=== PATIENT | male | born 1960 | race Caucasian/White ===

== ENCOUNTER → 2017-04-24 | Outpatient (CLI) | payer BC | END | disposition home or self-care (01) | LOC: GMAL 10:48 | PROVIDERS: ATTEND Family Medicine | DX: Z00.01 Encounter for general adult medical examination with abnormal findings (principal) ==

== ENCOUNTER → 2017-11-10 | Outpatient (CLI) | payer BC | END | disposition home or self-care (01) | LOC: GMAL 13:30 | PROVIDERS: ATTEND Family Medicine | DX: R53.83 Other fatigue (principal); D51.3 Other dietary vitamin B12 deficiency anemia; E78.4 Other hyperlipidemia; R41.3 Other amnesia; E29.8 Other testicular dysfunction; E55.9 Vitamin D deficiency, unspecified ==

== ENCOUNTER → 2017-11-17 | Outpatient (CLI) | payer BC ==
--- NOTE | 2017-11-17 11:22 | MRI ---
EXAM DESCRIPTION: Brain w/wo Contrast: Magnetic Resonance Imaging. 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 TECHNIQUE: Multiplanar, high-field MRI, multiple conventional sequences, without and with gadolinium IV contrast. No adverse reactions. Multiple axial diffusion sequences. Minimal technical limitations on the study due to patient motion. FINDINGS: Multiple small focal hyperintense FLAIR and T2-weighted signal in the periventricular white matter and tang-white matter junctions of the cerebral hemispheres. . Relatively symmetric and at and superior to the level of the body of the lateral ventricles. Minimal involvement of the bilateral temporal lobes. Not associated with hemorrhage, cerebral edema, or abnormal contrast enhancement. No diffusion restriction. Similar signal in the left central cheri. No mass effect hemorrhage or abnormal enhancement. Increased serpiginous and linear vessel type enhancement in the right frontal lobe subcortical white matter medial to the right sylvian fissure. Elongated linear hypointense signal on T1 and inversion recovery sequences. No diffusion restriction. Normal signal in the bilateral Basal ganglia. No hemorrhage, no cerebral edema, no mass-effect. Normal contrast enhancement. Normal signal in the remainder of the brainstem and cerebellar hemispheres. No hemorrhage, no cerebral edema, no mass-effect. Normal contrast enhancement. Concordance of the diffusion and non-diffusion sequences with no evidence of acute or subacute infarction. Cortical sulci, ventricles, and other CSF spaces, and the subdural spaces are normally configured for patients age.. No effacement or displacement. No midline shift. No extra-axial hemorrhage. Normal contrast enhancement. Normal flow signal void in the major vessels of the big [place] Bai, and the venous sinuses. IACs are symmetric bilaterally. Normal signal in the bilateral mastoid air cells. No mass effect in the bilateral Cerebellopontine angles. Normal contrast enhancement. Pituitary gland occupies the entire sella. Normal contrast enhancement. Base of the cerebellar tonsils is at the level of the foramen magnum. Minimal periosteal thickening in some of the paranasal sinuses. The bony calvarium is intact. IMPRESSION: 1. Relatively symmetric bilateral focal white matter hyperintensities in the periventricular white matter, less seen in the subcortical white matter and junction with cortical tang matter. This is most likely related to cerebral microvascular disease. Less likely to represent white matter demyelination, vasculitis, migraine headaches, or inflammatory process. No diffusion restriction hemorrhage or cerebral edema. 2. Prominent vascular signal in the right frontal lobe inferiorly and communicating with the anterior sagittal vascular structures is most likely a vascular malformation. No mass, no cerebral edema, no diffusion restriction. 3. Normal MRI noncontrast diffusion study with no evidence of acute or subacute infarction. Electronically signed by: Anil Monet MD 11/17/2017 11:21 AM CDT
== END ==
LOC: MRI 06:31
PROVIDERS: ATTEND Family Medicine
DX: R51 Headache (principal); R41.81 Age-related cognitive decline

== ENCOUNTER → 2018-05-04 | Outpatient (CLI) | payer BC | LOC: GMAL 10:30 | PROVIDERS: ATTEND Family Medicine | DX: D51.3 Other dietary vitamin B12 deficiency anemia (principal); E55.9 Vitamin D deficiency, unspecified; Z12.5 Encounter for screening for malignant neoplasm of prostate ==

== ENCOUNTER 2018-05-19 13:11 | Emergency (ER) | payer BC ==
[2018-05-19] MEDS ORDERED: HYDROcodone 10MG/APAP 325MG 1 EA TAB PO ONE (13:36)
--- NOTE | 2018-05-19 13:46 | ED.PDOC ---
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 Occurred: this afternoon Pain - Lower Extremity: moderate: Left Knee Method of Injury: unknown Improving Factors: immobilization, other - positioned in extension Worsening Factors: movement Allergies/Adverse Reactions: Allergies NO KNOWN ALLERGY Allergy (Verified 03/03/16 12:43) Home Medications: Ambulatory Orders Metoprolol Succinate [Toprol XL] 200 mg PO DAILY 03/03/16 Valsartan [Diovan] 320 mg PO DAILY 03/03/16 amLODIPine BESYLATE [Norvasc] 10 mg PO DAILY 03/03/16 Aspirin (Buffered) 325 mg [Bufferin 325 mg] 1 ea PO QD 03/07/16 Acetaminophen W/ Codeine [Tylenol W/ CODEINE #3] 1 ea PO Q8HRS PRN 5 Days #15 05/19/18 Atorvastatin Calcium [Lipitor] 20 mg PO DAILY 05/19/18 Cyanocobalamin [Vitamin B-12] 1,000 mcg SL DAILY 05/19/18 Multiple Vitamins W/ Minerals [Multivitamin Adults] 1 tab PO DAILY 05/19/18 Triamterene & Hydrochlorothiaz [Maxzide-25 37.5-25 mg] 1 tab PO DAILY 05/19/18 Review of Systems - Review of Systems Constitutional: States: no symptoms reported. Denies: fever Respiratory: Denies: cough, short of breath Cardiology: Denies: chest pain Gastrointestinal/Abdominal: States: no symptoms reported Musculoskeletal: States: see HPI, joint pain, joint swelling Skin: States: no symptoms reported Neurological: States: no symptoms reported Past Medical History (General) - Patient Medical History Hx Congestive Heart Failure: No Hx Diabetes: No Family Medical History - Family History Mother Family History: Unknown Physical Exam - Physical Exam General Appearance: Alert, Comfortable, No apparent distress, Obese Neck: supple, normal inspection Thigh/Hip: normal inspection, non-tender, no evidence of injury Leg: normal inspection, non-tender, no evidence of injury Knee: limited ROM, pain, soft tissue tenderness, swelling Ankle: normal inspection, no evidence of injury Neuro/Tendon: normal motor functions, no evidence tendon injury Mental Status: alert, oriented x 3 Skin: normal color, warm/dry Progress - Progress Progress: 05/19/18 23:38 He appears to have a bursal effusion, not a joint effusion - EKG/XRAY/CT XRAY: knee - no fx Departure - Departure Clinical Impression: Bursitis Qualifiers: Bursitis location: knee Knee bursitis location: suprapatellar bursitis Laterality: left Qualified Code(s): M70.52 - Other bursitis of knee, left knee Time of Disposition: 14:32 Disposition: Discharge to Home or Self Care Condition: Fair Departure Forms: ED Discharge - Pt. Copy, Patient Portal Self Enrollment Instructions: Bursitis (DC) Activity: increase activity as tolerated Referrals: Reggie Feliciano MD [Active Staff] - 05/21/18 Prescriptions: Acetaminophen W/ Codeine [Tylenol W/ CODEINE #3] 1 ea PO Q8HRS PRN 5 Days #15 PRN Reason: Moderate Pain Home Medications: Ambulatory Orders Metoprolol Succinate [Toprol XL] 200 mg PO DAILY 03/03/16 Valsartan [Diovan] 320 mg PO DAILY 03/03/16 amLODIPine BESYLATE [Norvasc] 10 mg PO DAILY 03/03/16 Aspirin (Buffered) 325 mg [Bufferin 325 mg] 1 ea PO QD 03/07/16 Acetaminophen W/ Codeine [Tylenol W/ CODEINE #3] 1 ea PO Q8HRS PRN 5 Days #15 05/19/18 Atorvastatin Calcium [Lipitor] 20 mg PO DAILY 05/19/18 Cyanocobalamin [Vitamin B-12] 1,000 mcg SL DAILY 05/19/18 Multiple Vitamins W/ Minerals [Multivitamin Adults] 1 tab PO DAILY 05/19/18 Triamterene & Hydrochlorothiaz [Maxzide-25 37.5-25 mg] 1 tab PO DAILY 05/19/18
[2018-05-19 13:57] VITALS: TEMP 99.1
--- NOTE | 2018-05-19 14:05 | RAD ---
EXAM DESCRIPTION: Knee,Left 2 or More Views CLINICAL HISTORY: swelling pain COMPARISON: None FINDINGS: 3 view(s) submitted. No fracture or dislocation is identified. Bone marrow attenuation is unremarkable. No radiopaque foreign body is identified. There is a knee joint effusion. Degenerative changes are present. There is mild lateral patellar subluxation. There is medial femorotibial joint space narrowing. IMPRESSION: No acute fracture or dislocation. Electronically signed by: Anil Gates 05/19/2018 2:03 PM CDT
[2018-05-19 15:11] VITALS: BP 140/71; O2SAT 98
== END 2018-05-19 15:00 | disposition home or self-care (01) ==
LOC: ER 13:11
DX: M70.52 Other bursitis of knee, left knee (principal)

== ENCOUNTER → 2018-05-23 | Outpatient (CLI) | payer BC | LOC: GMAL 14:33 | PROVIDERS: ATTEND Family Medicine | DX: M25.50 Pain in unspecified joint (principal) ==

== ENCOUNTER → 2019-01-14 | Outpatient (CLI) | payer BC | LOC: LAB.O 09:30 | PROVIDERS: ATTEND Orthopaedic Surgery | DX: Z01.818 Encounter for other preprocedural examination (principal) ==

== ENCOUNTER 2019-02-12 05:35 | Inpatient (IN) | payer BC ==
--- NOTE | 2019-02-11 10:51 | HP ---
CHIEF COMPLAINT: Left knee pain. HISTORY OF PRESENT ILLNESS: Jimbo is a 58-year-old male with a history of pain in the left knee that has been going on for a very long time that has been getting significantly worse. He has had knee arthroscopy and has also had injections. Unfortunately, the injections have failed. He had no direct trauma related to this, denies any radiation of pain and denies any neurologic symptoms. The pain is sharp in nature with ambulation and there is also an aching type pain on a continual basis. Because of his failure of conservative measures, he has requested operative intervention. After discussing the risks, benefits and alternatives to that, he has given informed consent. PAST SURGICAL HISTORY: 1. Cholecystectomy. 2. Appendectomy. 3. Meniscectomy. MEDICATIONS: 1. Diovan. 2. Toprol. 3. Norvasc. 4. Lipitor. 5. Mirapex. 6. Tramadol. ALLERGIES: NO KNOWN DRUG ALLERGIES. CODE STATUS: Full code. IMMUNIZATIONS: Up to date. SOCIAL HISTORY: The patient does not smoke or use any illicit drugs. He does drink on occasion. FAMILY HISTORY: None pertinent to today's complaint. REVIEW OF SYSTEMS: Negative except as indicated in the History of Present Illness. PHYSICAL EXAMINATION: VITAL SIGNS: Blood pressure 81/63. Pulse 86. Height 6'. Weight 348 pounds. GENERAL: He is an obese male in no acute distress. MENTAL STATUS: The patient is awake, alert, and is able to give a good history and participate in the physical. The patient is oriented to person, place and time. SKIN: Normal tone and turgor. HEENT: Normocephalic, atraumatic. Pupils equal, round and reactive. Mucosal membranes are moist. NECK: Normal range of motion. No thyromegaly, no lymphadenopathy. CHEST: Normal respiratory excursion. CARDIAC: Regular rate and rhythm. No murmurs, rubs or gallops. MUSCULOSKELETAL: Bilateral upper extremities show full active range of motion without pain. He has intact sensation. They are warm and well perfused. He has no deformities, no crepitus and strength is 5/5. The right lower extremity shows full range of motion of the hip. The knee has full extension and flexion to about 120 degrees. There is no overall malalignment. Sensation is intact and it is warm and well perfused. There is minimal crepitus in the knee. Strength is 5/5. The left lower extremity shows full range of motion in the hip. Sensation is intact. He has a slight varus deformity to the knee. The knee shows crepitus throughout his range and today he has near full extension with flexion to about 105 degrees. There is no varus/valgus or anterior/posterior laxity. He walks with an antalgic gait secondary to his knee pain. IMAGING: X-rays show severe arthritis. ASSESSMENT: 1. Osteoarthritis. PLAN: The plan at this point is total knee arthroplasty. We have discussed the risks, benefits, and alternatives to that and the patient has given informed consent. [id number]
[2019-02-12] MEDS ORDERED: ceFAZolin SODIUM 1 GM VIAL ONE ×4 (05:52→19:23)
[2019-02-12] MEDS ORDERED: SODIUM CHL 0.9% 100ML MINI-BAG 100 ML IVPB ONE (05:52)
[2019-02-12] MEDS ORDERED: LACTATED RINGERS 1,000 ML ONE (05:52)
[2019-02-12] MEDS ORDERED: TRANEXAMIC ACID 1,000 MG/10 ML VIAL ONE ×2 (05:52→06:03)
[2019-02-12] MEDS ORDERED: VANCOMYCIN HCL INJ 1,000 MG VIAL IVPB ONE ×3 (05:52→19:22)
[2019-02-12] MEDS ORDERED: SODIUM CHLORIDE 0.9% 100ML 100 ML IVPB ONE ×3 (05:53→19:22)
[2019-02-12] MEDS ORDERED: SODIUM CHLORIDE 0.9% 250ML 250 ML ONE ×3 (05:53→19:22)
[2019-02-12] MEDS ORDERED: MIDAZOLAM INJ 5 MG/5 ML VIAL ONE (06:26)
[2019-02-12] MEDS ORDERED: fentaNYL CITRATE INJ 50 MCG/ML AMP ONE (06:27)
[2019-02-12] MEDS ORDERED: MORPHINE SULFATE *EPIDURAL* 0.5 MG/ML VIAL ONE (06:27)
[2019-02-12] MEDS ORDERED: KETAMINE HCL 100 MG/ML VIAL ONE (06:34)
[2019-02-12] MEDS: BUPIVACAINE 0.5% 30 ML VIAL INJ ONE ×2 (08:04→09:11)
[2019-02-12] MEDS: ceFAZolin SODIUM 1 GM VIAL ONE ×2 (08:09→09:12)
[2019-02-12] MEDS: BUPIVACAINE LIPOSOME 13.3 MG/ML VIAL INJ ONE ×2 (08:09→09:11)
[2019-02-12] MEDS: VANCOMYCIN HCL INJ 1,000 MG VIAL IVPB ONE ×2 (08:09→09:12)
[2019-02-12] MEDS ORDERED: ELECTROLYTE-A 1,000 ML IVS ONE (08:31)
[2019-02-12] MEDS ORDERED: ALUMINUM & MAGNESIUM HYDROXIDE 30 ML UD PO PRN (09:43)
[2019-02-12] MEDS ORDERED: TRANEXAMIC ACID INJ 1,000 MG in SODIUM CHLORIDE 0.9% 100ML 100 ML IVPB ONE (09:43)
[2019-02-12] MEDS ORDERED: SODIUM CHLORIDE 0.9% (FLUSH) 10 ML SYG IV PRN (09:43)
[2019-02-12] MEDS ORDERED: MAGNESIUM HYDROXIDE 30 ML UD PO PRN (09:43)
[2019-02-12] MEDS ORDERED: PROMETHAZINE HCL INJ 12.5 MG in SODIUM CHLORIDE 0.9% 50ML 50 ML IVPB PRN (09:43)
[2019-02-12] MEDS ORDERED: ACETAMINOPHEN 325 MG TAB PO PRN (09:43)
[2019-02-12] MEDS ORDERED: ACETAMINOPHEN 500 MG TAB PO PRN (09:43)
[2019-02-12] MEDS ORDERED: BENZOCAINE-MENTH LOZ (CEPACOL) 1 EA LOZ MT PRN (09:43)
[2019-02-12] MEDS ORDERED: ZOLPIDEM TARTRATE 5 MG TAB PO PRN (09:43)
[2019-02-12] MEDS ORDERED: BISACODYL SUPPOSITORY 10 MG PR PRN (09:43)
[2019-02-12] MEDS ORDERED: NALOXONE HCL INJ 0.4 MG/ML VIAL IV PRN (09:43)
[2019-02-12] MEDS ORDERED: ONDANSETRON INJ 4 MG/2 ML VIAL IV PRN (09:43)
[2019-02-12] MEDS ORDERED: PROMETHAZINE HCL INJ 25 MG in SODIUM CHLORIDE 0.9% 50ML 50 ML IVPB PRN (09:43)
[2019-02-12] MEDS ORDERED: traMADol HCL 50 MG TAB PO PRN (09:43)
[2019-02-12] MEDS ORDERED: MORPHINE SULFATE INJ 10 MG/ML VIAL IM PRN (09:43)
[2019-02-12] MEDS ORDERED: DEX 5% W/NACL 0.45% 1000ML 1,000 ML IVS PRN (09:43)
[2019-02-12] MEDS ORDERED: MORPHINE PCA 1 MG/ML 100 ML BAG IVPB SCH (10:00)
[2019-02-12] MEDS ORDERED: SODIUM CHLORIDE 0.9% 50 ML VIAL INJ ONE (10:00)
[2019-02-12] MEDS ORDERED: raNITIdine HCL INJ 25 MG/ML VIAL IV ONE (10:00)
[2019-02-12] MEDS ORDERED: PROPOFOL 200 MG/20 ML VIAL IV ONE (10:00)
[2019-02-12] MEDS ORDERED: DEXAMETHASONE INJ 10 MG/ML VIAL IV ONE (10:00)
[2019-02-12] MEDS ORDERED: diphenhydrAMINE HCL 50 MG/ML VIAL IV PRN (11:30)
--- NOTE | 2019-02-12 11:33 | RAD ---
Findings: Number of images: Two Location: Left knee Interval left total knee arthroplasty. No acute fracture or dislocation. Subcutaneous soft tissue and gas, and edema, not unexpected postoperatively. No hardware complication. IMPRESSION: Recent left total knee arthroplasty. No evidence of hardware complication. Electronically signed by: Waldemar Taylor MD 02/12/2019 11:31 AM CDT
[2019-02-12] MEDS: NICOTINE PATCH 14 MG TD SCH (13:28)
[2019-02-12] MEDS: IV SET AND CAP CHANGE INJ INJ SCH (15:34)
[2019-02-12] MEDS: ceFAZolin SODIUM 2 GM in SODIUM CHLORIDE 0.9% 100ML 100 ML IVPB SCH ×2 (15:58→23:22)
[2019-02-12] MEDS: CELECOXIB 100 MG CAP PO SCH (17:01)
[2019-02-12] MEDS: VANCOMYCIN HCL INJ 1,000 MG in SODIUM CHLORIDE 0.9% 250ML 250 ML IVPB SCH (17:33)
[2019-02-12] MEDS ORDERED: ENOXAPARIN SODIUM 30 MG/0.3 ML SYG SUBCU ONE (19:22)
[2019-02-12] MEDS: DOCUSATE CALCIUM 240 MG CAP PO SCH (20:29)
--- NOTE | 2019-02-12 21:40 | CONS ---
DATE OF CONSULTATION: 02/12/19 SUPERVISING PHYSICIAN: Paulie Hinkle M.D. REASON FOR CONSULTATION: Medical management with total left knee arthroplasty. HISTORY OF PRESENT ILLNESS: Mr. Oneill is a 59 year-old male patient that has had a longstanding history of knee pain on the left side that has been slowly worsening over time. He has actually had a left knee arthroscopy as well as injections. He has failed to respond to treatment conservatively and has not had any direct trauma. Denies any radiation or any neurological symptoms. The pain has worsened to the point where he is having difficulty ambulating and due to fairly conservative measures he requested operative intervention. The patient was admitted for elective total left knee arthroplasty today. He had no intraoperative complications. He had a spinal block for anesthesia due to his high risk on intubation. He was seen postoperatively in stable condition. PAST MEDICAL HISTORY: 1. Hyperlipidemia. 2. Hypertension. 3. Obstructive sleep apnea utilizing CPAP at night. 4. Restless leg syndrome. PAST SURGICAL HISTORY: 1. Cholecystectomy. 2. Appendectomy. 3. Meniscectomy. 4. Left carpal and cuboidal tunnel surgery. HOME MEDICATIONS: 1. Amlodipine 10 mg daily. 2. Valsartan 320 mg daily. 3. Lipitor 20 mg daily. 4. Micardis 80 mg daily. 5. Phentermine 1 daily. 6. Triamterene/Hydrochlorothiazide 37.5 mg/25 mg 1 tablet daily. 7. Lexapro 10 mg daily. 8. Toprol XL 200 mg extended release tablets 1 every day. 9. Tramadol 50 mg 1 every 6 hours as needed for pain. 10. Pramipexole 0.25 mg 1 tablet h.s. for restless legs. 11. Vitamin B12 injections. 12. Vitamin D supplementation daily. 13. Aspirin 81 mg. 14. Multivitamin supplementation. ALLERGIES: NO KNOWN DRUG ALLERGIES. FAMILY HISTORY: Father at age 63 with lung cancer and hypertension. Mother at age 33 from a pulmonary embolism and DVT. He has 2 brothers, one age 32 secondary to AIDS. The other is healthy. He has 1 daughter who is in good health. Maternal grandmother had type 2 diabetes. Maternal uncle had diabetes. 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 He is . He has 1 daughter. Resides in [place], [place]. He utilizes smokeless tobacco and he drinks alcohol very infrequently. Does not use any illicit drugs. REVIEW OF SYSTEMS: CONSTITUTIONAL: Negative for general malaise, fatigue, unintentional weight loss or gain. HEENT: Negative for any ear aches, sore throat, nasal congestion, headaches, vision changes. RESPIRATORY: Negative for any shortness of breath, wheezing, coughing. He does utilize CPAP at night for obstructive sleep apnea. CARDIOVASCULAR: Denies any chest pains, palpitations or syncopal episodes, tachycardia. GASTROINTESTINAL: Negative for any nausea, vomiting, diarrhea or constipation. GENITOURINARY: Denies any dysuria, hematuria or polyuria. EXTREMITIES: As per History of Present Illness, left total knee arthroplasty with a spinal block for anesthesia. NEUROLOGIC: Denies any ataxia, seizures, headaches, vision changes, syncopal episodes or other sensory or motor deficits. PHYSICAL EXAMINATION: VITAL SIGNS: Temperature 98.4, pulse 63, blood pressure 139/78, respirations 16, satting 97% on room air. GENERAL: The patient is resting comfortably. Iceman is in place on his left knee. Appears to be in no acute distress. He is alert. HEENT: Tympanic membranes are clear bilaterally. Oropharynx is pink and moist without any lesions. NECK: Supple, non-tender. Full range of motion. No jugular venous distention. CHEST: Clear to auscultation bilaterally without any rhonchi, wheezing or rales. HEART: Regular rate and rhythm without appreciable murmurs, gallops, or rubs. ABDOMEN: Obese but soft, non-tender. Positive bowel sounds. EXTREMITIES: Left knee has an Iceman in place with a bulky dressing. Distally pulses are strong. Capillary refill is brisk. NEUROLOGIC: He is alert and oriented times three. LABORATORY: Postoperative H&H is pending. Preoperative drug screen was negative. ASSESSMENT: 1. Severe osteoarthritis left knee failing to respond to outpatient treatment measures requiring elective left total knee arthroplasty for symptom control, postoperative day #[address] Reggie Feliciano, orthopedic surgeon. 2. Hyperlipidemia. 3. Hypertension. 4. Restless leg syndrome. 5. Depression. 6. Chronic nicotine addiction in a patient who utilizes smokeless tobacco. PLAN: The patient will be followed postoperatively as he progresses through his physical therapy and rehabilitation efforts. Given that he is addicted to nicotine, will start him on a nicotine patch and encourage stopping all use of nicotine products. Will anticipate his length of stay to be 2 to 3 days. The plan at this point is to discharge to outpatient therapy. Will continue to monitor and treat the patient as needed until he is discharged. Will resume his home medications once they have been updated and verified. Again, until he can transition to outpatient management will continue to monitor and treat as needed. #[id number] [facility]
[2019-02-12] MEDS: ENOXAPARIN SODIUM 30 MG/0.3 ML SYG SUBCU SCH (22:36)
[2019-02-13] MEDS: TEMAZEPAM 15 MG CAP PO PRN ×2 (01:02→21:50)
[2019-02-13] MEDS: MORPHINE SULFATE INJ 10 MG/ML VIAL IV PRN ×2 (01:02→06:15)
[2019-02-13] MEDS: VANCOMYCIN HCL INJ 1,000 MG in SODIUM CHLORIDE 0.9% 250ML 250 ML IVPB SCH (06:16)
[2019-02-13] MEDS ORDERED: ceFAZolin SODIUM 1 GM VIAL ONE (07:20)
[2019-02-13] MEDS ORDERED: SODIUM CHLORIDE 0.9% 100ML 100 ML IVPB ONE (07:20)
[2019-02-13] MEDS: CELECOXIB 100 MG CAP PO SCH ×2 (08:10→16:41)
[2019-02-13] MEDS: NICOTINE PATCH 14 MG TD SCH (08:10)
[2019-02-13] MEDS: REMOVE OLD PATCH TOP SCH (08:11)
[2019-02-13] MEDS: HYDROcodone 5MG/APAP 325MG 1 EA TAB PO PRN ×4 (08:15→21:51)
[2019-02-13] MEDS: MAGNESIUM OXIDE 400 MG TAB PO SCH (08:15)
[2019-02-13] MEDS: CYCLOBENZAPRINE HCL 10 MG TAB PO PRN ×2 (08:15→16:41)
[2019-02-13] MEDS: ceFAZolin SODIUM 2 GM in SODIUM CHLORIDE 0.9% 100ML 100 ML IVPB SCH (08:55)
[2019-02-13] MEDS ORDERED: VALSARTAN 80 MG TAB PO SCH (09:30)
[2019-02-13] MEDS ORDERED: TRAMADOL HCL PO SCH (09:30)
[2019-02-13] MEDS ORDERED: PRAMIPEXOLE 0.25 MG TAB PO SCH (09:30)
--- NOTE | 2019-02-13 10:02 | OP ---
DATE OF PROCEDURE: 02/12/19 PREOPERATIVE DIAGNOSIS: 1. Osteoarthritis of the knee. POSTOPERATIVE DIAGNOSIS: 1. Osteoarthritis of the knee. PROCEDURE: 1. Total knee arthroplasty. SURGEON: Reggie Feliciano MD. YARN SPINNER: Anil Fernandez CST, SA-C. ANESTHESIA: Regional anesthesia with sedation. COMPLICATIONS: None. FINDINGS: Severe osteoarthritis. INDICATION: Mr. Oneill has a history of severe pain that has been associated with arthritis. He has had no response to conservative measures. Because of his ongoing pain, he has requested operative intervention. After discussing the risks, benefits and alternatives to that, the patient has given informed consent for total knee arthroplasty. PROCEDURE: The patient was brought to the Operating Room and placed in supine position. Anesthesia was induced and the patient's leg was sterilely prepped and draped. Following prepping and draping, the distal femur was exposed and using an intramedullary guide, the distal femoral cut was made. The appropriate sized cutting block was measured, pinned into place, and the anterior, posterior, and chamfer cuts were made. The ACL was transected and the tibia was subluxed. Both the medial and lateral menisci were removed. An intramedullary guide was used to make the proximal tibial cut. The appropriate sized base plate was placed and a trial polyethylene was placed. The trial femur was placed, the knee was reduced, and the knee was taken through a range of motion. The knee was stable in anterior, posterior, varus and valgus stress. The patella tracked anatomically without evidence of subluxation or dislocation. After trialing, the trial components were removed and the bony surfaces were thoroughly irrigated with saline. Following irrigation, the surfaces were dried and the final components were cemented into place. The excess cement was removed and the remaining cement was allowed to cure. The knee was again taken through a range of motion to confirm stability. The wound was then irrigated with saline and closure was performed using PDS to approximate the arthrotomy followed by closure of the subcutaneous tissues with a combination of running and interrupted Monocryl sutures. Sterile dressing was placed. The patient was awoken from anesthesia and taken to Recovery. POSTOPERATIVE PLAN: The patient will be weight-bearing as tolerated on postoperative day 1. COMPONENTS: Minbox Triathlon knee, size 7 femur, size 7 tibia, 9 mm insert. #[id number] [facility]
--- NOTE | 2019-02-13 10:04 | PN ---
DATE: 02/12/19 POSTOPERATIVE CHECK SUBJECTIVE: Mr. Oneill is comfortable right now and not having any pain. OBJECTIVE: Afebrile. Vital signs stable. Dressing is clean, dry and intact. ASSESSMENT: Status post total knee arthroplasty. PLAN: At this point, the plan is for him to begin weightbearing as tolerated on postoperative day #1. We will start him on CPM today. [facility][id number] [facility]
--- NOTE | 2019-02-13 10:06 | PN ---
DATE: 02/13/19 SUBJECTIVE: He is doing pretty well. 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 OBJECTIVE: Afebrile. Vital signs stable. Dressing is clean, dry and intact. ASSESSMENT: Status post total knee arthroplasty. PLAN: He will continue with his current weightbearing status. I have encouraged his oral intake of [place] before physical therapy and Motrin or Tylenol in between. [facility][id number] [facility]
[2019-02-13] MEDS: METOPROLOL SUCCINATE XL 100 MG TAB PO SCH (10:27)
[2019-02-13] MEDS: HCTZ 25 MG/TRIAMTERENE 37.5 MG 1 EA CAP PO SCH ×2 (10:27→20:05)
[2019-02-13] MEDS: ASPIRIN (ENTERIC COATED) 325 MG TAB PO SCH (10:27)
[2019-02-13] MEDS: amLODIPine BESYLATE 5 MG TAB PO SCH (10:28)
[2019-02-13] MEDS: ENOXAPARIN SODIUM 30 MG/0.3 ML SYG SUBCU SCH ×2 (12:05→22:10)
[2019-02-13] MEDS: DOCUSATE CALCIUM 240 MG CAP PO SCH (20:05)
[2019-02-14] MEDS: CYCLOBENZAPRINE HCL 10 MG TAB PO PRN (05:57)
[2019-02-14] MEDS: HYDROcodone 5MG/APAP 325MG 1 EA TAB PO PRN ×3 (05:57→20:04)
[2019-02-14] MEDS: CELECOXIB 100 MG CAP PO SCH ×2 (07:37→16:38)
--- NOTE | 2019-02-14 08:53 | PN ---
DATE: 02/13/19 SUPERVISING PHYSICIAN: Paulie Hinkle MD SUBJECTIVE: The patient is doing well with physical therapy. He has had no further complaints other than a little itching but he is doing well. He is afebrile. He has had no nausea or vomiting. OBJECTIVE: VITAL SIGNS: Temperature 97.8, pulse 86, blood pressure 167/85, respirations 18, saturation 97% on room air. Weight showing to be stable at 151.9 kg. CHEST: Lungs are clear to auscultation bilaterally. HEART: Regular rate and rhythm. ABDOMEN: Soft, non-tender, positive bowel sounds. EXTREMITIES: The left knee has a bulky dressing in place with distal pulses being strong, capillary refill brisk. NEUROLOGIC: Alert and oriented x 3. LABORATORY: Postoperative hemoglobin 12.3 and hematocrit 35.8. ASSESSMENT: 1. Severe osteoarthritis left knee failing to respond to outpatient treatment measures requiring elective left total knee arthroplasty for symptom control, postoperative day #[address] Reggie Feliciano, orthopedic surgeon. 2. Hyperlipidemia. 3. Hypertension. 4. Restless leg syndrome. 5. Depression. 6. Chronic nicotine addiction in a patient who utilizes smokeless tobacco. PLAN: I will continue to follow the patient through his rehabilitation and physical therapy efforts. I restarted his medications and he is on a nicotine patch. I have also encouraged him to keep on top of his pain medication and utilize [place] right before physical therapy as needed. Will anticipate discharge hopefully either Monday or Monday. Until the, we will continue to monitor and treat as needed. #[id number] [facility]
[2019-02-14] MEDS: METOPROLOL SUCCINATE XL 100 MG TAB PO SCH (08:56)
[2019-02-14] MEDS: MAGNESIUM OXIDE 400 MG TAB PO SCH (08:56)
[2019-02-14] MEDS: HCTZ 25 MG/TRIAMTERENE 37.5 MG 1 EA CAP PO SCH ×2 (08:57→20:40)
[2019-02-14] MEDS: ASPIRIN (ENTERIC COATED) 325 MG TAB PO SCH (08:57)
[2019-02-14] MEDS: amLODIPine BESYLATE 5 MG TAB PO SCH (08:57)
[2019-02-14] MEDS: PRAMIPEXOLE 0.25 MG TAB PO SCH (08:58)
[2019-02-14] MEDS: SODIUM CHLORIDE 0.9% (FLUSH) 10 ML SYG IV SCH ×2 (08:58→20:40)
[2019-02-14] MEDS: REMOVE OLD PATCH TOP SCH (08:58)
[2019-02-14] MEDS: MULTIPLE VITAMINS W/ MINERALS 1 EA TAB PO SCH (08:58)
[2019-02-14] MEDS: NICOTINE PATCH 14 MG TD SCH (08:58)
[2019-02-14] MEDS: ATORVASTATIN 20 MG TAB PO SCH (08:58)
--- NOTE | 2019-02-14 09:21 | PN ---
DATE: 02/14/19 SUBJECTIVE: Mr. Oneill is doing well. He is up to a chair and pain is well controlled. OBJECTIVE: Afebrile. Vital signs stable. Wound is clean. There are no signs or symptoms of infection. ASSESSMENT: Status post total knee arthroplasty. PLAN: The plan is to continue with weightbearing as tolerated and increasing CPM. [facility][id number] [facility]
[2019-02-14] MEDS: ENOXAPARIN SODIUM 30 MG/0.3 ML SYG SUBCU SCH ×2 (10:39→22:45)
[2019-02-14] MEDS: DOCUSATE CALCIUM 240 MG CAP PO SCH (20:40)
[2019-02-15] MEDS: CYCLOBENZAPRINE HCL 10 MG TAB PO PRN ×2 (01:52→20:28)
[2019-02-15] MEDS: HYDROcodone 5MG/APAP 325MG 1 EA TAB PO PRN ×2 (04:18→09:22)
[2019-02-15] MEDS: CELECOXIB 100 MG CAP PO SCH ×2 (07:17→17:19)
[2019-02-15] MEDS: HCTZ 25 MG/TRIAMTERENE 37.5 MG 1 EA CAP PO SCH ×2 (09:16→20:29)
[2019-02-15] MEDS: PRAMIPEXOLE 0.25 MG TAB PO SCH (09:16)
[2019-02-15] MEDS: MAGNESIUM OXIDE 400 MG TAB PO SCH (09:17)
[2019-02-15] MEDS: NICOTINE PATCH 14 MG TD SCH (09:17)
[2019-02-15] MEDS: MULTIPLE VITAMINS W/ MINERALS 1 EA TAB PO SCH (09:17)
[2019-02-15] MEDS: ASPIRIN (ENTERIC COATED) 325 MG TAB PO SCH (09:17)
[2019-02-15] MEDS: METOPROLOL SUCCINATE XL 100 MG TAB PO SCH (09:17)
[2019-02-15] MEDS: ATORVASTATIN 20 MG TAB PO SCH (09:17)
[2019-02-15] MEDS: SODIUM CHLORIDE 0.9% (FLUSH) 10 ML SYG IV SCH ×2 (09:18→20:28)
[2019-02-15] MEDS: REMOVE OLD PATCH TOP SCH (09:18)
[2019-02-15] MEDS: amLODIPine BESYLATE 5 MG TAB PO SCH (09:21)
[2019-02-15] MEDS: IV SET AND CAP CHANGE INJ INJ SCH (11:28)
[2019-02-15] MEDS: ENOXAPARIN SODIUM 30 MG/0.3 ML SYG SUBCU SCH ×2 (11:32→23:01)
[2019-02-15] MEDS: HYDROcodone 10MG/APAP 325MG 1 EA TAB PO PRN ×2 (12:58→17:32)
--- NOTE | 2019-02-15 14:59 | PN ---
DATE: -02/15/19 SUPERVISING PHYSICIAN: Paulie Hinkle MD SUBJECTIVE: The patient is sitting on the side of the bed eating his breakfast. He has no complaint other than he has difficulty lifting his left leg off the floor. Physical therapy has been working on him with that. He denies any shortness of breath, nausea or vomiting, diarrhea or constipation or chest pain. OBJECTIVE: VITAL SIGNS: Temperature 99.1, heart rate 90, blood pressure 164/81, respiratory rate 18, 02 saturation 96% on room air. CHEST: Essentially clear to auscultation bilaterally. CARDIAC: Regular rate and rhythm. GI: Abdomen soft, nondistended, non-tender. Bowel sounds are positive. EXTREMITIES: He has island bandages to his left knee that are dry and intact. His bilateral pedal pulses are palpable at +2. NEUROLOGICAL: He is awake, alert and oriented x3. LABORATORY/RADIOLOGY There are no labs or films to report today. ASSESSMENT: 1. Severe osteoarthritis left knee failing to respond to outpatient treatment measures requiring elective left total knee arthroplasty for symptom control, postoperative day #3, performed by Dr. Reggie Feliciano, orthopedic surgeon. 2. Hyperlipidemia. 3. Hypertension. 4. Restless leg syndrome. 5. Depression. 6. Chronic nicotine addiction in a patient who utilizes smokeless tobacco. PLAN: We will continue aggressive supportive care. His orthopedic issues will be per Dr. Reggie Feliciano, orthopedic surgeon. Physical therapy will continue for strengthening and condition and he will be discharged with his clinical progress at the recommendations of physical therapy. He will do physical therapy after discharge at [facility]. We will continue to monitor him closely and follow as needed. #[id number] [facility]
[2019-02-15] MEDS: DOCUSATE CALCIUM 240 MG CAP PO SCH (20:28)
[2019-02-15] MEDS ORDERED: MAGNESIUM HYDROXIDE 30 ML UD PO ONE (21:00)
[2019-02-15] MEDS ORDERED: BISACODYL SUPPOSITORY 10 MG PR ONE (21:00)
[2019-02-15] MEDS: TEMAZEPAM 15 MG CAP PO PRN (22:08)
[2019-02-16] MEDS: HYDROcodone 10MG/APAP 325MG 1 EA TAB PO PRN ×4 (04:02→20:21)
[2019-02-16] MEDS: CYCLOBENZAPRINE HCL 10 MG TAB PO PRN ×2 (08:50→19:36)
[2019-02-16] MEDS: CELECOXIB 100 MG CAP PO SCH ×2 (08:50→16:14)
[2019-02-16] MEDS ORDERED: HYDROcodone 10MG/APAP 325MG 1 EA TAB PO ONE (11:04)
[2019-02-16] MEDS: PRAMIPEXOLE 0.25 MG TAB PO SCH (11:08)
[2019-02-16] MEDS: MULTIPLE VITAMINS W/ MINERALS 1 EA TAB PO SCH (11:08)
[2019-02-16] MEDS: ASPIRIN (ENTERIC COATED) 325 MG TAB PO SCH (11:08)
[2019-02-16] MEDS: HCTZ 25 MG/TRIAMTERENE 37.5 MG 1 EA CAP PO SCH ×2 (11:08→20:42)
[2019-02-16] MEDS: amLODIPine BESYLATE 5 MG TAB PO SCH (11:08)
[2019-02-16] MEDS: ATORVASTATIN 20 MG TAB PO SCH (11:09)
[2019-02-16] MEDS: METOPROLOL SUCCINATE XL 100 MG TAB PO SCH (11:09)
[2019-02-16] MEDS: NICOTINE PATCH 14 MG TD SCH (11:09)
[2019-02-16] MEDS: MAGNESIUM OXIDE 400 MG TAB PO SCH (11:11)
[2019-02-16] MEDS: REMOVE OLD PATCH TOP SCH (11:16)
[2019-02-16] MEDS: ENOXAPARIN SODIUM 30 MG/0.3 ML SYG SUBCU SCH ×2 (11:16→22:31)
[2019-02-16] MEDS: SODIUM CHLORIDE 0.9% (FLUSH) 10 ML SYG IV SCH ×2 (11:58→20:42)
--- NOTE | 2019-02-16 15:42 | PN ---
DATE: 02/16/19 SUBJECTIVE: Nino is doing well and his pain is well controlled. OBJECTIVE: He is afebrile. Vital signs are stable. Wound is clean. There are no signs or symptoms of infection. ASSESSMENT: 1. Status post total knee arthroplasty. PLAN: The plan at this point is for ongoing weightbearing as tolerated. Will likely discharge him tomorrow. #[id number] [facility]
[2019-02-16] MEDS: TEMAZEPAM 15 MG CAP PO PRN (20:42)
[2019-02-16] MEDS: DOCUSATE CALCIUM 240 MG CAP PO SCH (20:42)
--- NOTE | 2019-02-16 20:58 | PN ---
DATE: 02/16/19 SUPERVISING PHYSICIAN: Paulie Hinkle M.D. SUBJECTIVE: The patient is sitting on side of bed. He had problems controlling his pain. We have increased his pain medications. His physical therapy went as expected today, but again his pain control is his main issue. Otherwise no complaints of shortness of breath, chest pain, nausea, vomiting, diarrhea or constipation. OBJECTIVE: VITAL SIGNS: Temperature 98.8, T max 24 hours is 99.4, heart rate 78, blood pressure 124/76, respiratory rate 20, O2 sat 96% on room air. RESPIRATORY: Essentially clear to auscultation bilaterally. CARDIAC: Regular rate and rhythm. GASTROINTESTINAL: Abdomen is soft, nondistended, non-tender. Bowel sounds are positive. EXTREMITIES: Bilateral pedal pulses are palpable at +2. His left knee has an island dressing on it that is dry and intact. There are no labs or films to report at this time. ASSESSMENT: 1. Severe osteoarthritis left knee failing to respond to outpatient treatment measures requiring elective left total knee arthroplasty for symptom control, postoperative day #4, surgery performed by Dr. Reggie Feliciano, orthopedic surgeon. 2. Hyperlipidemia. 3. Hypertension. 4. Restless leg syndrome. 5. Depression. 6. Chronic nicotine addiction in a patient who utilizes smokeless tobacco. PLAN: We will continue present supportive care. Orthopedic issues will be per Dr. Reggie Feliciano, orthopedic surgeon. Physical therapy will continue for strengthening and conditioning tomorrow. I have sent his standard rolling [facility]. I have increased his pain medications. Hopefully he can be discharged tomorrow. He will have outpatient physical therapy at [facility]. Will continue to monitor closely and follow as needed. #[id number] [facility]
[2019-02-17] MEDS: HYDROcodone 10MG/APAP 325MG 1 EA TAB PO PRN ×2 (02:13→14:13)
[2019-02-17] MEDS: CELECOXIB 100 MG CAP PO SCH (07:45)
[2019-02-17] MEDS: MULTIPLE VITAMINS W/ MINERALS 1 EA TAB PO SCH (09:15)
[2019-02-17] MEDS: amLODIPine BESYLATE 5 MG TAB PO SCH (09:15)
[2019-02-17] MEDS: NICOTINE PATCH 14 MG TD SCH (09:15)
[2019-02-17] MEDS: HCTZ 25 MG/TRIAMTERENE 37.5 MG 1 EA CAP PO SCH (09:15)
[2019-02-17] MEDS: METOPROLOL SUCCINATE XL 100 MG TAB PO SCH (09:15)
[2019-02-17] MEDS: MAGNESIUM OXIDE 400 MG TAB PO SCH (09:15)
[2019-02-17] MEDS: PRAMIPEXOLE 0.25 MG TAB PO SCH (09:16)
[2019-02-17] MEDS: ATORVASTATIN 20 MG TAB PO SCH (09:16)
[2019-02-17] MEDS: ASPIRIN (ENTERIC COATED) 325 MG TAB PO SCH (09:16)
[2019-02-17] MEDS: REMOVE OLD PATCH TOP SCH (09:25)
[2019-02-17] MEDS: SODIUM CHLORIDE 0.9% (FLUSH) 10 ML SYG IV SCH (09:25)
--- NOTE | 2019-02-17 11:51 | PN ---
DATE: 02/17/19 SUBJECTIVE: Mr. Oneill is subjectively doing well. He is having good pain control with p.o. medicine. OBJECTIVE: He is afebrile. Vital signs are stable. Wound is clean. There are no signs or symptoms of infection. ASSESSMENT: 1. Status post total knee arthroplasty. PLAN: The plan at this point is for discharge with followup in approximately 2 weeks. He has been instructed to return immediately should any change in his condition occur. #[id number] [facility]
[2019-02-17 12:10] VITALS: BP 115/62; TEMP 98.9; O2SAT 95
[2019-02-17] MEDS: ENOXAPARIN SODIUM 30 MG/0.3 ML SYG SUBCU SCH (13:17)
--- NOTE | 2019-02-25 10:24 | DS ---
SUPERVISING PHYSICIAN: Kwasi Hinkle MD DISCHARGE DIAGNOSIS: 1. Severe osteoarthritis left knee failing to respond to outpatient treatment and required elective left total knee arthroplasty performed by Dr. Reggie Feliciano, orthopedic surgeon, postoperative day #5. 2. Hyperlipidemia. 3. Hypertension. 4. Restless leg syndrome. 5. Depression. 6. Chronic nicotine addiction in a patient who utilizes smokeless tobacco. HISTORY OF PRESENT ILLNESS: This is a 59-year-old male patient who was admitted to the hospital for a left total knee arthroplasty. He has a longstanding history of knee pain on the left side that has been slowly worsened over time. He has had arthroscopy as well as injections. He has failed to respond to conservative treatment. He requested that Dr. Reggie Feliciano, orthopedic surgeon, do operative intervention. He was admitted for elective total left knee arthroplasty today. He had no intraoperative complications. He was admitted to the hospital postoperatively in stable condition. HOSPITAL COURSE: The patient went through his routine physical therapy for strengthening and conditioning. He was started on a nicotine patch due to his smokeless tobacco. He had some initial complications with trying to get his pain under control as well as his physical therapy was somewhat slower than anticipated. Over the next several days, he slowly improved. He has completed his inpatient stay and is able to be discharged home in stable condition. LABORATORY: His hemoglobin and hematocrit on postoperative #1 were 12.3 and 35.8. On admission, his UDS was negative. DISCHARGE PLAN: The patient will be discharged home in stable condition. He is to have physical therapy at [facility] and physical therapy department. He is to resume his previous medications with the addition of cyclobenzaprine, Xarelto for 6 additional days, Restoril, tramadol and hydrocodone. He is to followup with Dr. Reggie Feliciano at his scheduled appointment. He is to return to the hospital or followup with Dr. Feliciano for any problems or complications. DISCHARGE MEDICATIONS: 1. Valsartan. 2. Metoprolol. 3. Amlodipine. 4. Aspirin. 5. Atorvastatin. 6. Multivitamins. 7. Tramadol. 8. Bactrim. 9. Rifampin. 10. Pramipexole. 11. Triamterene/hydrochlorothiazide. 12. Hydrocodone. 13. Xarelto. 14. Cyclobenzaprine. 15. Temazepam. #[id number] [facility]
== END 2019-02-17 15:38 | disposition home or self-care (01) | DRG 470 ==
LOC: AMB 05:35 → MS 10:45
PROVIDERS: ADMIT Orthopaedic Surgery; ATTEND Nurse Practitioner Acute Care
PROC: 3E0T3BZ Introduction of Anesthetic Agent into Peripheral Nerves and Plexi, Percutaneous Approach (ICD-10-PCS; 2019-02-12)
PROC: 3E0T33Z Introduction of Anti-inflammatory into Peripheral Nerves and Plexi, Percutaneous Approach (ICD-10-PCS; 2019-02-12)
PROC: 0SRD0J9 Replacement of Left Knee Joint with Synthetic Substitute, Cemented, Open Approach (ICD-10-PCS; principal; 2019-02-12 06:49)
DX: M17.12 Unilateral primary osteoarthritis, left knee (principal); G89.18 Other acute postprocedural pain; I10 Essential (primary) hypertension; E78.5 Hyperlipidemia, unspecified; G47.33 Obstructive sleep apnea (adult) (pediatric); G25.81 Restless legs syndrome; F17.290 Nicotine dependence, other tobacco product, uncomplicated; F32.9 Major depressive disorder, single episode, unspecified; Z79.82 Long term (current) use of aspirin; Z79.891 Long term (current) use of opiate analgesic; Z79.899 Other long term (current) drug therapy

== ENCOUNTER → 2020-08-18 | Outpatient (CLI) | payer BC | LOC: GMAL 11:15 | PROVIDERS: ATTEND Family Medicine | DX: D51.3 Other dietary vitamin B12 deficiency anemia (principal); E29.8 Other testicular dysfunction; R53.83 Other fatigue; E55.9 Vitamin D deficiency, unspecified ==